=== PATIENT | female | born 1940 | race Caucasian/White ===

== ENCOUNTER 2018-03-05 13:04 | Outpatient (CLI) | payer MEDICARE, OTHER | END 2018-03-05 13:05 | disposition home or self-care (01) | LOC: RT 13:04 | PROVIDERS: ATTEND Internal Medicine Cardiovascular Disease | DX: I48.91 Unspecified atrial fibrillation (principal) | CPT/HCPCS: 36415; 80053; 80162; 84439; 84443; 85025; 85610; 93005 ==

== ENCOUNTER 2018-03-05 13:44 | Outpatient (CLI) | payer MEDICARE, OTHER ==
[2018-03-05 14:06] LABS: BASOPHILS # (AUTO) 0.1 10^3/uL (0.0-0.1); BASOPHILS % (AUTO) 0.7 %; EOSINOPHILS # (AUTO) 0.1 10^3/uL (0.0-0.7); EOSINOPHILS % (AUTO) 1.7 %; HGB - HEMOGLOBIN 14.8 g/dL (12.0-16.0); LYMPHOCYTES # (AUTO) 2.6 10^3/uL (1.5-3.5); LYMPHOCYTES % (AUTO) 31.9 %; MEAN CORPUSCULAR HEMOGLOBIN 30.3 pg (27.0-31.0); MEAN CORPUSCULAR HGB CONC 33.6 g/dL (32.0-36.0); MEAN CORPUSCULAR VOLUME 89.9 fL (81.0-99.0); MEAN PLATELET VOLUME 10.9 fL (7.9-10.8); MONOCYTES # (AUTO) 0.9 10^3/uL (0.0-1.0); MONOCYTES % (AUTO) 10.7 %; NEUTROPHILS # (AUTO) 4.5 10^3/uL (1.5-6.6); PLT - PLATELET COUNT 184 10^3/uL (130-450); RED BLOOD COUNT 4.89 10^6/uL (4.20-5.40); WHITE BLOOD COUNT 8.2 x10^3/uL (4.8-10.8)
[2018-03-05 14:08] LABS: INR 1.4 (0.8-1.2); PT - PROTHROMBIN TIME 15.4 secs (9.9-12.6)
[2018-03-05 14:20] LABS: ALBUMIN/GLOBULIN RATIO 1.1 (1.0-2.2); ALKALINE PHOSPHATASE 53 IU/L (42-121); ALT ALANINE AMINOTRANSFERASE 22 IU/L (10-60); AST ASPARTATE AMINOTRANSFERASE 17 IU/L (10-42); BILIRUBIN,TOTAL 0.8 mg/dL (0.2-1.0); BUN - BLOOD UREA NITROGEN 11 mg/dL (6-20); CALCIUM 9.1 mg/dL (8.5-10.3); CARBON DIOXIDE - CO2 25 mmol/L (21-32); CHLORIDE 104 mmol/L (101-111); CREATININE 0.7 mg/dL (0.4-1.0); DIGOXIN 0.3 ng/mL; GFR - MDRD 82 (>89); GLUCOSE 93 mg/dL (70-100); SODIUM 136 mmol/L (135-145); TOTAL PROTEIN 7.5 g/dL (6.7-8.2)
[2018-03-05 14:28] LABS: PLATELET MORPHOLOGY RARE GIANT PLATELETS (NORMAL)
[2018-03-05 14:50] LABS: THYROID STIMULATING HORMONE 1.03 uIU/mL (0.34-5.60)
[2018-03-05 14:52] LABS: FREE T4 (FREE THYROXINE) 0.75 ng/dL (0.58-1.64)
== END 2018-03-05 13:45 | disposition home or self-care (01) ==
LOC: LAB 13:44
PROVIDERS: ATTEND Internal Medicine Cardiovascular Disease
DX: I48.91 Unspecified atrial fibrillation (principal)
CPT/HCPCS: 36415; 80053; 80162; 84439; 84443; 85025; 85610

== ENCOUNTER 2018-03-13 13:26 | Outpatient (CLI) | payer MEDICARE, OTHER ==
[2018-03-13 14:52] LABS: INR 3.6 (0.8-1.2); PT - PROTHROMBIN TIME 38.8 secs (9.9-12.6)
== END 2018-03-13 13:27 | disposition home or self-care (01) ==
LOC: LAB 13:26
PROVIDERS: ATTEND Internal Medicine Cardiovascular Disease
DX: I48.91 Unspecified atrial fibrillation (principal)
CPT/HCPCS: 36415; 85610

== ENCOUNTER 2018-03-27 13:29 | Outpatient (CLI) | payer MEDICARE, OTHER ==
[2018-03-27 13:49] LABS: INR 3.2 (0.8-1.2); PT - PROTHROMBIN TIME 34.4 secs (9.9-12.6)
== END 2018-03-27 13:30 | disposition home or self-care (01) ==
LOC: LAB 13:29
PROVIDERS: ATTEND Internal Medicine Cardiovascular Disease
DX: I48.91 Unspecified atrial fibrillation (principal)
CPT/HCPCS: 36415; 85610

== ENCOUNTER → 2018-06-25 | Outpatient (CLI) | payer MEDICARE, OTHER ==
[2018-06-25 13:31] LABS: BASOPHILS % (AUTO) 0.4 %; EOSINOPHILS # (AUTO) 0.1 10^3/uL (0.0-0.7); EOSINOPHILS % (AUTO) 1.2 %; HGB - HEMOGLOBIN 14.5 g/dL (12.0-16.0); LYMPHOCYTES # (AUTO) 2.6 10^3/uL (1.5-3.5); LYMPHOCYTES % (AUTO) 28.7 %; MEAN CORPUSCULAR HEMOGLOBIN 30.5 pg (27.0-31.0); MEAN CORPUSCULAR HGB CONC 33.5 g/dL (32.0-36.0); MEAN PLATELET VOLUME 11.7 fL (7.9-10.8); MONOCYTES # (AUTO) 0.7 10^3/uL (0.0-1.0); MONOCYTES % (AUTO) 7.4 %; NEUTROPHILS # (AUTO) 5.6 10^3/uL (1.5-6.6); NEUTROPHILS % (AUTO) 62.3 %; PLT - PLATELET COUNT 202 10^3/uL (130-450); RED BLOOD COUNT 4.78 10^6/uL (4.20-5.40); RED CELL DISTRIBUTION WIDTH 14.4 % (12.0-15.0)
[2018-06-25 13:52] LABS: ALBUMIN 3.8 g/dL (3.2-5.5); ALKALINE PHOSPHATASE 58 IU/L (42-121); ALT ALANINE AMINOTRANSFERASE 20 IU/L (10-60); AST ASPARTATE AMINOTRANSFERASE 18 IU/L (10-42); BILIRUBIN,TOTAL 0.8 mg/dL (0.2-1.0); BUN - BLOOD UREA NITROGEN 12 mg/dL (6-20); CALCIUM 8.9 mg/dL (8.5-10.3); CARBON DIOXIDE - CO2 25 mmol/L (21-32); CHLORIDE 101 mmol/L (101-111); CHOL/HDL RATIO 6.6 (<4.4); CHOLESTEROL 230 mg/dL; CREATININE 0.7 mg/dL (0.4-1.0); GFR - MDRD 82 (>89); GLUCOSE 94 mg/dL (70-100); HDL CHOLESTEROL 35 mg/dL; LDL CHOLESTEROL,CALCULATED 161 mg/dL; LDL/HDL RATIO 4.6 (<4.4); SODIUM 135 mmol/L (135-145); TOTAL PROTEIN 7.7 g/dL (6.7-8.2); VLDL CHOLESTEROL 34 mg/dL
[2018-06-25 14:08] LABS: PLATELET MORPHOLOGY NORMAL APPEARANCE (NORMAL)
== END ==
LOC: LAB.WCP 08:00
PROVIDERS: ATTEND Physician Assistant
DX: Z13.220 Encounter for screening for lipoid disorders (principal); R53.83 Other fatigue; E87.1 Hypo-osmolality and hyponatremia; Z79.899 Other long term (current) drug therapy
CPT/HCPCS: 36415; 80053; 80061; 83721; 84443; 85025

== ENCOUNTER 2019-01-14 08:00 | Outpatient (CLI) | payer MEDICARE, OTHER | END 2019-01-14 23:59 | disposition home or self-care (01) | LOC: LAB.WCP 08:00 | PROVIDERS: ATTEND Family Medicine | DX: I48.91 Unspecified atrial fibrillation (principal); Z79.01 Long term (current) use of anticoagulants | CPT/HCPCS: 81025 ==

== ENCOUNTER 2019-02-11 08:00 | Outpatient (CLI) | payer MEDICARE, OTHER | END 2019-02-11 23:59 | disposition home or self-care (01) | LOC: LAB.WCP 08:00 | PROVIDERS: ATTEND Physician Assistant | DX: I48.91 Unspecified atrial fibrillation (principal); Z79.01 Long term (current) use of anticoagulants ==

== ENCOUNTER 2019-03-11 08:00 | Outpatient (CLI) | payer MEDICARE, OTHER | END 2019-03-11 08:01 | disposition home or self-care (01) | LOC: LAB.WCP 08:00 | PROVIDERS: ATTEND Physician Assistant | DX: Z51.81 Encounter for therapeutic drug level monitoring (principal); I48.91 Unspecified atrial fibrillation; Z79.01 Long term (current) use of anticoagulants ==

== ENCOUNTER 2019-04-07 08:00 | Outpatient (CLI) | payer MEDICARE, OTHER | END 2019-04-07 23:59 | disposition home or self-care (01) | LOC: LAB.WCP 08:00 | PROVIDERS: ATTEND Physician Assistant | DX: I48.91 Unspecified atrial fibrillation (principal); Z79.01 Long term (current) use of anticoagulants ==

== ENCOUNTER 2019-05-25 08:00 | Outpatient (CLI) | payer MEDICARE, OTHER ==
[2019-05-25 18:50] LABS: CHOL/HDL RATIO 5.9 (<4.4); CHOLESTEROL 226 mg/dL; HDL CHOLESTEROL 38 mg/dL; LDL CHOLESTEROL,CALCULATED 160 mg/dL; LDL/HDL RATIO 4.2 (<4.4); VLDL CHOLESTEROL 28 mg/dL
== END 2019-05-25 23:59 | disposition home or self-care (01) ==
LOC: LAB.WCP 08:00
PROVIDERS: ATTEND Physician Assistant
DX: E78.5 Hyperlipidemia, unspecified (principal); I48.91 Unspecified atrial fibrillation; Z79.01 Long term (current) use of anticoagulants
CPT/HCPCS: 36415; 80061; 83721

== ENCOUNTER 2019-06-08 08:00 | Outpatient (CLI) | payer MEDICARE, OTHER | END 2019-06-08 23:59 | disposition home or self-care (01) | LOC: LAB.WCP 08:00 | PROVIDERS: ATTEND Physician Assistant | DX: I48.91 Unspecified atrial fibrillation (principal); Z79.01 Long term (current) use of anticoagulants ==

== ENCOUNTER 2019-06-18 08:00 | Outpatient (CLI) | payer MEDICARE, OTHER | END 2019-06-18 23:59 | disposition home or self-care (01) | LOC: LAB.WCP 08:00 | PROVIDERS: ATTEND Physician Assistant | DX: I48.91 Unspecified atrial fibrillation (principal); Z79.01 Long term (current) use of anticoagulants ==

== ENCOUNTER 2019-07-01 08:00 | Outpatient (CLI) | payer MEDICARE, OTHER | END 2019-07-01 23:59 | disposition home or self-care (01) | LOC: LAB.WCP 08:00 | PROVIDERS: ATTEND Physician Assistant Medical | DX: Z79.01 Long term (current) use of anticoagulants (principal); I48.91 Unspecified atrial fibrillation ==

== ENCOUNTER 2019-07-15 08:00 | Outpatient (CLI) | payer MEDICARE, OTHER | END 2019-07-15 23:59 | disposition home or self-care (01) | LOC: LAB.WCP 08:00 | PROVIDERS: ATTEND Physician Assistant Medical | DX: I48.91 Unspecified atrial fibrillation (principal); Z79.01 Long term (current) use of anticoagulants ==

== ENCOUNTER 2019-07-26 08:00 | Outpatient (CLI) | payer MEDICARE, OTHER | END 2019-07-26 23:59 | disposition home or self-care (01) | LOC: LAB.WCP 08:00 | PROVIDERS: ATTEND Physician Assistant | DX: I48.91 Unspecified atrial fibrillation (principal); Z79.01 Long term (current) use of anticoagulants ==

== ENCOUNTER 2019-09-07 08:00 | Outpatient (CLI) | payer MEDICARE, OTHER | END 2019-09-07 23:59 | disposition home or self-care (01) | LOC: LAB.WCP 08:00 | PROVIDERS: ATTEND Physician Assistant | DX: Z79.01 Long term (current) use of anticoagulants (principal); I48.91 Unspecified atrial fibrillation ==

== ENCOUNTER 2019-12-14 08:00 | Outpatient (CLI) | payer MEDICARE, OTHER | END 2019-12-14 23:59 | disposition home or self-care (01) | LOC: LAB.WCP 08:00 | PROVIDERS: ATTEND Physician Assistant | DX: Z53.9 Procedure and treatment not carried out, unspecified reason (principal) ==

== ENCOUNTER 2020-01-11 08:00 | Outpatient (CLI) | payer MEDICARE, OTHER | END 2020-01-11 23:59 | disposition home or self-care (01) | LOC: LAB.WCP 08:00 | PROVIDERS: ATTEND Physician Assistant | DX: I48.91 Unspecified atrial fibrillation (principal); Z79.01 Long term (current) use of anticoagulants ==

== ENCOUNTER 2020-01-11 08:00 | Outpatient (CLI) | payer MEDICARE, OTHER | END 2020-01-11 23:59 | disposition home or self-care (01) | LOC: LAB.WCP 08:00 | PROVIDERS: ATTEND Physician Assistant | DX: I48.91 Unspecified atrial fibrillation (principal); Z79.01 Long term (current) use of anticoagulants ==

== ENCOUNTER 2020-02-15 08:00 | Outpatient (CLI) | payer MEDICARE, OTHER | END 2020-02-15 23:59 | disposition home or self-care (01) | LOC: LAB.WCP 08:00 | PROVIDERS: ATTEND Physician Assistant | DX: I48.91 Unspecified atrial fibrillation (principal); Z79.01 Long term (current) use of anticoagulants ==

== ENCOUNTER 2020-03-15 08:00 | Outpatient (CLI) | payer MEDICARE, OTHER | END 2020-03-15 23:59 | disposition home or self-care (01) | LOC: LAB.WCP 08:00 | PROVIDERS: ATTEND Physician Assistant | DX: I48.91 Unspecified atrial fibrillation (principal); Z79.01 Long term (current) use of anticoagulants ==

== ENCOUNTER 2020-04-14 08:00 | Outpatient (CLI) | payer MEDICARE, OTHER | END 2020-04-14 23:59 | disposition home or self-care (01) | LOC: LAB.WCP 08:00 | PROVIDERS: ATTEND Physician Assistant | DX: I48.91 Unspecified atrial fibrillation (principal); Z79.01 Long term (current) use of anticoagulants ==

== ENCOUNTER 2020-05-03 08:00 | Outpatient (CLI) | payer MEDICARE | END 2020-05-03 23:59 | disposition home or self-care (01) | LOC: LAB.WCP 08:00 | PROVIDERS: ATTEND Physician Assistant | DX: I48.91 Unspecified atrial fibrillation (principal); Z79.01 Long term (current) use of anticoagulants ==

== ENCOUNTER 2020-06-20 08:00 | Outpatient (CLI) | payer MEDICARE | END 2020-06-20 23:59 | disposition home or self-care (01) | LOC: LAB.WCP 08:00 | PROVIDERS: ATTEND Physician Assistant | DX: I48.91 Unspecified atrial fibrillation (principal); Z79.01 Long term (current) use of anticoagulants ==

== ENCOUNTER 2020-07-18 08:00 | Outpatient (CLI) | payer MEDICARE | END 2020-07-18 23:59 | disposition home or self-care (01) | LOC: LAB.WCP 08:00 | PROVIDERS: ATTEND Physician Assistant | DX: I48.91 Unspecified atrial fibrillation (principal); Z79.01 Long term (current) use of anticoagulants ==

== ENCOUNTER 2020-10-02 08:00 | Outpatient (CLI) | payer MEDICARE | END 2020-10-02 23:59 | disposition home or self-care (01) | LOC: LAB.WCP 08:00 | PROVIDERS: ATTEND Nurse Practitioner Family | DX: Z79.01 Long term (current) use of anticoagulants (principal) ==

== ENCOUNTER 2020-10-30 08:00 | Outpatient (CLI) | payer MEDICARE | END 2020-10-30 23:59 | disposition home or self-care (01) | LOC: LAB.WCP 08:00 | PROVIDERS: ATTEND Physician Assistant | DX: Z79.01 Long term (current) use of anticoagulants (principal) ==

== ENCOUNTER 2020-11-13 08:00 | Outpatient (CLI) | payer MEDICARE | END 2020-11-13 23:59 | disposition home or self-care (01) | LOC: LAB.N 08:00 | PROVIDERS: ATTEND Physician Assistant | DX: Z79.01 Long term (current) use of anticoagulants (principal) ==

== ENCOUNTER 2020-11-27 08:00 | Outpatient (CLI) | payer MEDICARE | END 2020-11-27 23:59 | disposition home or self-care (01) | LOC: LAB.WCP 08:00 | PROVIDERS: ATTEND Physician Assistant Medical | DX: Z79.01 Long term (current) use of anticoagulants (principal) ==

== ENCOUNTER 2020-12-13 08:00 | Outpatient (CLI) | payer MEDICARE | END 2020-12-13 23:59 | disposition home or self-care (01) | LOC: LAB.WCP 08:00 | PROVIDERS: ATTEND Family Medicine | DX: Z79.01 Long term (current) use of anticoagulants (principal); I48.91 Unspecified atrial fibrillation ==

== ENCOUNTER 2021-01-17 08:00 | Outpatient (CLI) | payer MEDICARE | END 2021-01-17 23:59 | disposition home or self-care (01) | LOC: LAB.N 08:00 | PROVIDERS: ATTEND Family Medicine | DX: I48.91 Unspecified atrial fibrillation (principal) ==

== ENCOUNTER 2021-01-26 08:00 | Outpatient (CLI) | payer MEDICARE ==
[2021-01-26 18:37] LABS: BASOPHILS % (AUTO) 0.5 %; EOSINOPHILS # (AUTO) 0.1 10^3/uL (0.0-0.7); EOSINOPHILS % (AUTO) 1.5 %; HGB - HEMOGLOBIN 14.6 g/dL (12.0-16.0); LYMPHOCYTES # (AUTO) 2.3 10^3/uL (1.5-3.5); LYMPHOCYTES % (AUTO) 30.8 %; MEAN CORPUSCULAR HEMOGLOBIN 30.5 pg (27.0-31.0); MEAN CORPUSCULAR HGB CONC 32.4 g/dL (32.0-36.0); MEAN CORPUSCULAR VOLUME 94.1 fL (81.0-99.0); MEAN PLATELET VOLUME 13.9 fL (7.9-10.8); MONOCYTES # (AUTO) 0.6 10^3/uL (0.0-1.0); MONOCYTES % (AUTO) 7.7 %; NEUTROPHILS # (AUTO) 4.5 10^3/uL (1.5-6.6); NEUTROPHILS % (AUTO) 59.1 %; PLT - PLATELET COUNT 196 10^3/uL (130-450); RED BLOOD COUNT 4.78 10^6/uL (4.20-5.40); RED CELL DISTRIBUTION WIDTH 14.8 % (12.0-15.0); WHITE BLOOD COUNT 7.5 x10^3/uL (4.8-10.8)
[2021-01-26 19:01] LABS: ALBUMIN 3.9 g/dL (3.2-5.5); ALBUMIN/GLOBULIN RATIO 1.2 (1.0-2.2); ALKALINE PHOSPHATASE 54 IU/L (42-121); ALT ALANINE AMINOTRANSFERASE 21 IU/L (10-60); AST ASPARTATE AMINOTRANSFERASE 18 IU/L (10-42); BILIRUBIN,TOTAL 0.6 mg/dL (0.2-1.0); BUN - BLOOD UREA NITROGEN 9 mg/dL (6-20); CALCIUM 8.9 mg/dL (8.5-10.3); CARBON DIOXIDE - CO2 26 mmol/L (21-32); CHLORIDE 102 mmol/L (101-111); CHOLESTEROL 228 mg/dL; CREATININE 0.8 mg/dL (0.4-1.0); GFR - MDRD 69 (>89); GLUCOSE 91 mg/dL (70-100); HDL CHOLESTEROL 38 mg/dL; LDL CHOLESTEROL,CALCULATED 154 mg/dL; LDL/HDL RATIO 4.1 (<4.4); POTASSIUM 4.2 mmol/L (3.5-5.0); SODIUM 137 mmol/L (135-145); TOTAL PROTEIN 7.2 g/dL (6.7-8.2); TRIGLYCERIDES 178 mg/dL; VLDL CHOLESTEROL 36 mg/dL
[2021-01-26 19:21] LABS: THYROID STIMULATING HORMONE 0.95 uIU/mL (0.34-5.60)
== END 2021-01-26 23:59 | disposition home or self-care (01) ==
LOC: LAB.WCP 08:00
PROVIDERS: ATTEND Family Medicine
DX: I48.91 Unspecified atrial fibrillation (principal); E78.5 Hyperlipidemia, unspecified; Z79.899 Other long term (current) drug therapy
CPT/HCPCS: 36415; 80053; 80061; 83721; 84443; 85025

== ENCOUNTER 2021-02-12 08:00 | Outpatient (CLI) | payer MEDICARE | END 2021-02-12 23:59 | disposition home or self-care (01) | LOC: LAB.N 08:00 | PROVIDERS: ATTEND Family Medicine | DX: I48.91 Unspecified atrial fibrillation (principal); Z79.01 Long term (current) use of anticoagulants ==

== ENCOUNTER 2021-03-19 08:00 | Outpatient (CLI) | payer MEDICARE | END 2021-03-19 23:59 | disposition home or self-care (01) | LOC: LAB.N 08:00 | PROVIDERS: ATTEND Family Medicine | DX: I48.91 Unspecified atrial fibrillation (principal); Z79.01 Long term (current) use of anticoagulants ==

== ENCOUNTER 2021-04-23 08:00 | Outpatient (CLI) | payer MEDICARE | END 2021-04-23 23:59 | disposition home or self-care (01) | LOC: LAB.N 08:00 | PROVIDERS: ATTEND Family Medicine | DX: Z79.01 Long term (current) use of anticoagulants (principal); I48.91 Unspecified atrial fibrillation ==

== ENCOUNTER 2021-05-21 08:00 | Outpatient (CLI) | payer MEDICARE | END 2021-05-21 23:59 | disposition home or self-care (01) | LOC: LAB.WCP 08:00 | PROVIDERS: ATTEND Internal Medicine | DX: I48.91 Unspecified atrial fibrillation (principal); Z79.01 Long term (current) use of anticoagulants ==

== ENCOUNTER 2021-06-04 08:00 | Outpatient (CLI) | payer MEDICARE | END 2021-06-04 23:59 | disposition home or self-care (01) | LOC: LAB.N 08:00 | PROVIDERS: ATTEND Family Medicine | DX: I48.91 Unspecified atrial fibrillation (principal); Z79.01 Long term (current) use of anticoagulants ==

== ENCOUNTER 2021-07-09 08:00 | Outpatient (CLI) | payer MEDICARE | END 2021-07-09 23:59 | disposition home or self-care (01) | LOC: LAB.N 08:00 | PROVIDERS: ATTEND Family Medicine | DX: Z79.01 Long term (current) use of anticoagulants (principal); I48.91 Unspecified atrial fibrillation ==

== ENCOUNTER 2021-08-08 08:00 | Outpatient (CLI) | payer MEDICARE | END 2021-08-08 23:59 | disposition home or self-care (01) | LOC: LAB.N 08:00 | PROVIDERS: ATTEND Family Medicine | DX: Z79.01 Long term (current) use of anticoagulants (principal); I48.91 Unspecified atrial fibrillation ==

== ENCOUNTER 2021-09-14 08:00 | Outpatient (CLI) | payer MEDICARE | END 2021-09-14 23:59 | disposition home or self-care (01) | LOC: LAB.N 08:00 | PROVIDERS: ATTEND Family Medicine | DX: I48.91 Unspecified atrial fibrillation (principal); Z79.01 Long term (current) use of anticoagulants ==

== ENCOUNTER 2021-11-21 08:00 | Outpatient (CLI) | payer MEDICARE | END 2021-11-21 23:59 | disposition home or self-care (01) | LOC: LAB.N 08:00 | PROVIDERS: ATTEND Family Medicine | DX: I48.91 Unspecified atrial fibrillation (principal); Z79.01 Long term (current) use of anticoagulants ==

== ENCOUNTER 2021-12-12 08:00 | Outpatient (CLI) | payer MEDICARE | END 2021-12-12 23:59 | disposition home or self-care (01) | LOC: LAB.N 08:00 | PROVIDERS: ATTEND Family Medicine | DX: I48.91 Unspecified atrial fibrillation (principal); Z79.01 Long term (current) use of anticoagulants ==

== ENCOUNTER 2022-01-09 08:00 | Outpatient (CLI) | payer MEDICARE | END 2022-01-09 23:59 | disposition home or self-care (01) | LOC: LAB.WCP 08:00 | PROVIDERS: ATTEND Family Medicine | DX: Z79.01 Long term (current) use of anticoagulants (principal); I48.91 Unspecified atrial fibrillation ==

== ENCOUNTER 2022-02-06 08:00 | Outpatient (CLI) | payer MEDICARE | END 2022-02-06 23:59 | disposition home or self-care (01) | LOC: LAB.WCP 08:00 | PROVIDERS: ATTEND Family Medicine | DX: I48.91 Unspecified atrial fibrillation (principal); Z79.01 Long term (current) use of anticoagulants ==

== ENCOUNTER 2022-03-11 08:00 | Outpatient (CLI) | payer MEDICARE | END 2022-03-11 23:59 | disposition home or self-care (01) | LOC: LAB.N 08:00 | PROVIDERS: ATTEND Family Medicine | DX: I48.91 Unspecified atrial fibrillation (principal); Z79.01 Long term (current) use of anticoagulants ==

== ENCOUNTER 2022-06-21 08:00 | Outpatient (CLI) | payer MEDICARE | END 2022-06-21 08:01 | disposition home or self-care (01) | LOC: LAB.WCP 08:00 | PROVIDERS: ATTEND Physician Assistant | DX: I48.91 Unspecified atrial fibrillation (principal); Z79.01 Long term (current) use of anticoagulants ==

== ENCOUNTER 2022-07-26 08:00 | Outpatient (CLI) | payer MEDICARE | END 2022-07-26 23:59 | disposition home or self-care (01) | LOC: LAB.WCP 08:00 | PROVIDERS: ATTEND Physician Assistant | DX: Z79.01 Long term (current) use of anticoagulants (principal); I48.91 Unspecified atrial fibrillation ==

== ENCOUNTER 2022-09-30 10:57 | Outpatient (CLI) | payer MEDICARE ==
--- NOTE | 2022-09-30 16:38 | XRAY Report ---
PROCEDURE: Finger(s) LT INDICATIONS: L THUMB PX TECHNIQUE: AP hand, 2 views of the first finger(s) acquired. COMPARISON: None FINDINGS: Bones: No fractures or dislocations. No suspicious bony lesions. Soft tissues: No suspicious soft tissue calcifications. IMPRESSION: 1. No evidence for acute osseous abnormality involving the patient's left thumb. 2. Moderate osteoarthritic type degenerative change involving the left fifth DIP joint and left secon d MCP joint. Reviewed by: Cornelio Avelar MD on 09/30/2022 4:37 PM PST Approved by: Cornelio Avelar MD on 09/30/2022 4:37 PM PST Station ID: [id number]
== END 2022-09-30 10:58 | disposition home or self-care (01) ==
LOC: DI.N 10:57
PROVIDERS: ATTEND Physician Assistant
DX: M19.042 Primary osteoarthritis, left hand (principal)

== ENCOUNTER → 2022-10-02 | Outpatient (CLI) | payer MEDICARE | LOC: LAB.WCP 08:00 | PROVIDERS: ATTEND Physician Assistant | DX: Z79.01 Long term (current) use of anticoagulants (principal); I48.91 Unspecified atrial fibrillation ==

== ENCOUNTER 2022-12-05 12:58 | Emergency (ER) | payer MEDICARE ==
--- NOTE | 2022-12-05 14:12 | ED Physician Documentation ---
History of Present Illness - Stated complaint Stated Complaint: HEADACHE - Chief complaint Chief Complaint: Neuro - Additonal information Additional information: 82-year-old female was advised to come to the emergency department for evaluatio n of strokelike symptoms. She does have a history of well-controlled hypertension as well as atrial fibrillation. She is anticoagulated on Pradaxa. She reports compliance with all of her medications. At 9 AM yesterday the patient was on the phone speaking with her sister. She suddenly got garbled speech. She was aware that she could not speak normally. She also reports that she had double vision. The symptoms lasted for about 5 minutes before fully abating. Patient denies that she had focal weakness in her arms or legs at this time and does not believe that she had facial droop. Becau se she had returned to her baseline she did not think anything of it however when she was discussing the event with friends and family they told her to get medically evaluated thus she presented to the walk-in clinic who advised her to come here. At this time patient is alert well-appearing. Her vital signs are unremarkable for age and history. She is noted to be in atrial fibrillation well controlled on the monitor. Neurologically her NIHSS is 0 right now she no longer has slurred speech or double vision. Review of Systems Constitutional: denies: Fever, Chills Eyes: reports: Other (Double vision) Respiratory: reports: Reviewed and negative GI: reports: Reviewed and negative : reports: Reviewed and negative Skin: reports: Reviewed and negative Musculoskeletal: reports: Reviewed and negative Neurologic: reports: Difficulty speaking PD PAST MEDICAL HISTORY - Present Medications Home Medications: Ambulatory Orders Medication Instructions Recorded Confirmed Atorvastatin [Lipitor] 20 mg PO QPM #30 tablet 12/05/22 Dabigatran Etexilate Mesylate 150 mg ORAL BID 12/05/22 12/05/22 [Pradaxa] Digoxin [Lanoxin] 125 mcg PO DAILY 12/05/22 12/05/22 diltiaZEM CD [Cardizem Cd] 120 mg PO DAILY 12/05/22 12/05/22 - Allergies Allergies/Adverse Reactions: Allergies Allergy/AdvReac Type Severity Reaction Status Date / Time No Known Drug Allergies Allergy Verified 12/05/22 13:07 PD ED PE NORMAL - General General: Alert and oriented X 3, No acute distress, Well developed/nourished - HEENT HEENT: Atraumatic, PERRL, EOMI, Ears normal, Moist mucous membranes - Neck Neck: Supple, no meningeal sign - Cardiac Cardiac: No murmur, Strong equal pulses. No: RRR (Rate controlled atrial fibrillation. Irregularly irregular) - Respiratory Respiratory: No respiratory distress, Clear bilaterally - Back Back: No CVA TTP - Derm Derm: Normal color, Warm and dry, No rash - Extremities Extremities: No deformity - Neuro Neuro: Alert and oriented X 3, security solutions engineer 2-12 intact, No motor deficit, No sensory deficit, Normal speech, Other (NIHSS of 0; Normal finger-nose. Normal heel rodriguez.) Eye Opening: Spontaneous Motor: Obeys Commands Verbal: Oriented GCS Score: 15 Results - Vitals Vitals: Vital Signs - 24 hr 12/05/22 12/05/22 13:09 15:13 Temperature 36.7 C Heart Rate 86 68 Respiratory 16 17 Rate Blood Pressure 145/81 H 133/82 H O2 Saturation 97 96 Oxygen O2 Source Room air - Rads (name of study) CT head Radiology: Final report received (No evidence of acute hemorrhage. Old deep white matter infarct. Age-related volume loss and moderate to severe small vessel ischemic change) PD Medical Decision Making - ED course Complexity details: re-evaluated patient, considered differential, d/w patient, d/w family ED course: 82-year-old female presents emergency department from a local walk-in clinic for evaluation of a headache. She is anticoagulated on Pradaxa. She gone to a local walk-in clinic when she had reported that yesterday morning at 9 AM she was on the phone and developed garbled speech and double vision. The symptoms lasted about 5 minutes before fully abating. She returned to her usual baseline health. She does report a history of remote CVA. Presentation to the ER today she has an NIHSS of 0. She does have a well rate controlled A-fib on the monitor. A CT of the head today shows no acute bleeding or mass effect. However we do see findings that suggest old remote infarction. I am at this time she is scheduled to see her wet process technician in follow-up in the next 1 to 2 weeks. At that time she should have an echocardiogram ordered. I am going to start her on a statin. I discussed with patient that she is at high risk for further events moving forward and should she have a return of similar symptoms she will need to return immediately to the ER. Given that she continues to drive of also asked her to stop driving until cleared by her wet process technician or neurologist. Departure - Departure Disposition: 01 Home, Self Care Clinical Impression: Stroke-like symptoms, Cerebral arteriosclerosis with history of previous stroke, History of atrial fibrillation, Anticoagulated Condition: Stable Record reviewed to determine appropriate education?: Yes Prescriptions: Atorvastatin [Lipitor] 20 mg PO QPM #30 tablet Comments: Monae she came to the emergency department today because yesterday morning you were on the phone developed some double vision and had slurred speech for about 5 minutes. Her symptoms fully went away. He went to a local walk-in clinic and they advised you to come to the ER. He did have a history of atrial fibrillation and you are taking anticoagulant medication. Here in the emergency department your neurological exam is essentially normal. However the CT scan that we did today shows that you have had strokes at some point in the past. Moving forward it is important that you obtain an MRI of your brain. When you see your wet process technician in follow-up in the next week or 2 he should also order an echocardiogram. You can continue to take your Pradaxa. In order to help with risk management I am going to start you on a statin. I do think it is important that you stop driving. If it any point moving forward you have return of similar symptoms, slurred speech, facial droop, arm or leg weakness you must return immediately to the ER.
--- NOTE | 2022-12-05 14:54 | CT Report ---
PROCEDURE: HEAD WO INDICATIONS: headache on pradaxa TECHNIQUE: Noncontrast 4.5 mm thick angled axial sections acquired from the foramen magnum to the vertex. For r adiation dose reduction, the following was used: automated exposure control, adjustment of mA and/or kV according to patient size. COMPARISON: None. FINDINGS: Image quality: Excellent. CSF spaces: Basal cisterns are patent. No extra-axial fluid collections. Ventricles are normal in size and shape. Brain: No midline shift. No intracranial masses or hemorrhage. [place]-white matter interface is norm al. Old left foraminal deep white matter infarct. Age-related volume loss and moderate to severe sma ll vessel ischemic change. Skull and face: Calvarium and visualized facial bones are intact, without suspicious lesions. Sinuses: Visualized sinuses and mastoids are clear. IMPRESSION: 1. No evidence of acute hemorrhage. 2. Age-related volume loss and moderate to severe small vessel ischemic change. 3. Old deep white matter infarct. Reviewed by: Kwesi Hook MD on 12/05/2022 2:52 PM PST Approved by: Kwesi Hook MD on 12/05/2022 2:52 PM PST Station ID: [id number]
[2022-12-05] MEDS ORDERED: ACETAMINOPHEN 325 MG TABLET PO STA (15:00)
[2022-12-05 16:16] VITALS: BP 131/71
== END 2022-12-05 16:19 | disposition home or self-care (01) ==
LOC: ED 12:58
DX: I67.2 Cerebral atherosclerosis (principal); I48.91 Unspecified atrial fibrillation; Z79.01 Long term (current) use of anticoagulants; Z86.73 Personal history of transient ischemic attack (TIA), and cerebral infarction without residual deficits
CPT/HCPCS: 70450; 99284; A9270

== ENCOUNTER 2023-07-09 10:29 | Outpatient (CLI) | payer MEDICARE ==
[2023-07-09 10:45] LABS: BASOPHILS % (AUTO) 0.4 %; EOSINOPHILS % (AUTO) 1.3 %; HCT - HEMATOCRIT 43.9 % (37.0-47.0); HGB - HEMOGLOBIN 14.1 g/dL (12.0-16.0); LYMPHOCYTES % (AUTO) 22.1 %; MEAN CORPUSCULAR HEMOGLOBIN 29.6 pg (27.0-31.0); MEAN CORPUSCULAR HGB CONC 32.1 g/dL (32.0-36.0); MEAN PLATELET VOLUME 12.3 fL (7.9-10.8); MONOCYTES % (AUTO) 8.7 %; NEUTROPHILS % (AUTO) 67.3 %; PLT - PLATELET COUNT 265 10^3/uL (130-450); RED BLOOD COUNT 4.77 10^6/uL (4.20-5.40); RED CELL DISTRIBUTION WIDTH 14.5 % (12.0-15.0); WHITE BLOOD COUNT 8.4 x10^3/uL (4.8-10.8)
[2023-07-09 10:47] LABS: ABNORMAL LYMPHS % (MANUAL) 0 %
[2023-07-09 11:12] LABS: BAND NEUTROPHILS % (MANUAL) 1 %; DIFFERENTIAL COMMENT MANUAL DIFFERENTIAL; LYMPHOCYTES # (MANUAL) 2.3 10^3/uL (1.5-3.5); LYMPHOCYTES % (MANUAL) 19 %; MONOCYTES # (MANUAL) 1.1 10^3/uL (0.0-1.0); REACTIVE LYMPHS % (MANUAL) 8 %
[2023-07-09 11:30] LABS: ALBUMIN 4.1 g/dL (3.2-5.5); ALBUMIN/GLOBULIN RATIO 1.3 (1.0-2.2); ALKALINE PHOSPHATASE 72 IU/L (42-121); ALT ALANINE AMINOTRANSFERASE 25 IU/L (10-60); AST ASPARTATE AMINOTRANSFERASE 22 IU/L (10-42); BILIRUBIN,TOTAL 0.7 mg/dL (0.2-1.0); BUN - BLOOD UREA NITROGEN 13 mg/dL (6-20); CALCIUM 9.5 mg/dL (8.5-10.3); CARBON DIOXIDE - CO2 28 mmol/L (21-32); CHLORIDE 101 mmol/L (101-111); CHOL/HDL RATIO 4.6 (<4.4); CHOLESTEROL 184 mg/dL; CK- CREATINE KINASE 97 IU/L (30-223); CREATININE 0.6 mg/dL (0.6-1.3); GFR - MDRD 96 (>89); GLUCOSE 109 mg/dL (74-104); HDL CHOLESTEROL 40 mg/dL; LDL CHOLESTEROL,CALCULATED 126 mg/dL; LDL/HDL RATIO 3.2 (<4.4); POTASSIUM 4.5 mmol/L (3.5-4.5); SODIUM 135 mmol/L (135-145); TOTAL PROTEIN 7.3 g/dL (6.4-8.9); TRIGLYCERIDES 92 mg/dL (48-352); VLDL CHOLESTEROL 18 mg/dL
[2023-07-09 12:29] LABS: THYROID STIMULATING HORMONE 1.15 uIU/mL (0.34-5.60)
--- NOTE | 2023-07-09 14:08 | XRAY Report ---
PROCEDURE: Lumbar Spine 2 View INDICATIONS: LEG PAIN TECHNIQUE: 3 views of the lumbar spine were acquired. COMPARISON: None. FINDINGS: Bones: 5 [id number] vertebrae are present. There is normal bony alignment. No vertebral body compression fractures. No suspicious bony lesions. Moderate disc height loss at all levels. Moderat e facet arthrosis L5-S1. Soft tissues: Overlying bowel gas pattern is normal. No suspicious soft tissue calcifications. IMPRESSION: Moderate disc height loss at all levels and moderate lumbosacral facet arthrosis. Reviewed by: Delbert Garcia on 07/09/2023 2:07 PM PDT Approved by: Delbert Garcia on 07/09/2023 2:07 PM PDT Station ID: [id number]
--- NOTE | 2023-07-09 14:09 | XRAY Report ---
PROCEDURE: Hips 2V BILAT INDICATIONS: LEG PAIN TECHNIQUE: 2 views of the left hip, and one view of the pelvis were acquired. COMPARISON: None. FINDINGS: Bones: No fractures or dislocations. No suspicious bony lesions. Nonuniform joint space narrowing and osteophytic lipping of the acetabulum. Soft tissues: No suspicious soft tissue calcifications or masses. IMPRESSION: Mild left hip osteoarthritis. Reviewed by: Delbert Garcia on 07/09/2023 2:08 PM PDT Approved by: Delbert Garcia on 07/09/2023 2:08 PM PDT Station ID: [id number]
--- NOTE | 2023-07-09 14:10 | XRAY Report ---
PROCEDURE: Femur 2V LT INDICATIONS: LEG PAIN TECHNIQUE: 2 views of the femur were acquired. COMPARISON: None. FINDINGS: Bones: No fractures or dislocations. No suspicious bony lesions. Soft tissues: No suspicious soft tissue calcifications or masses. IMPRESSION: No acute bony abnormality. Reviewed by: Delbert Garcia on 07/09/2023 2:08 PM PDT Approved by: Delbert Garcia on 07/09/2023 2:08 PM PDT Station ID: [id number]
== END 2023-07-09 10:30 | disposition home or self-care (01) ==
LOC: DI 10:29
PROVIDERS: ATTEND Physician Assistant
DX: M79.605 Pain in left leg (principal); I48.91 Unspecified atrial fibrillation; M79.10 Myalgia, unspecified site; E78.5 Hyperlipidemia, unspecified; M47.816 Spondylosis without myelopathy or radiculopathy, lumbar region; M51.36 Other intervertebral disc degeneration, lumbar region; M16.0 Bilateral primary osteoarthritis of hip
CPT/HCPCS: 36415; 80053; 80061; 82550; 83721; 84443; 85025

== ENCOUNTER 2023-09-12 16:10 | Outpatient (CLI) | payer MEDICARE ==
[2023-09-12 17:00] LABS: DIGOXIN 0.5 ng/mL
== END 2023-09-12 16:11 | disposition home or self-care (01) ==
LOC: LAB 16:10
PROVIDERS: ATTEND Physician Assistant
DX: I48.91 Unspecified atrial fibrillation (principal)
CPT/HCPCS: 36415; 80162

== ENCOUNTER 2024-06-18 11:10 | Observation (INO) | payer MEDICARE ==
[2024-06-18 11:49] LABS: BASOPHILS % (AUTO) 0.2 %; EOSINOPHILS % (AUTO) 0.2 %; HCT - HEMATOCRIT 45.5 % (37.0-47.0); HGB - HEMOGLOBIN 14.5 g/dL (12.0-16.0); LYMPHOCYTES # (AUTO) 1.9 10^3/uL (1.5-3.5); LYMPHOCYTES % (AUTO) 11.7 %; MEAN CORPUSCULAR HEMOGLOBIN 29.7 pg (27.0-31.0); MEAN CORPUSCULAR HGB CONC 31.9 g/dL (32.0-36.0); MEAN PLATELET VOLUME 12.6 fL (7.9-10.8); MONOCYTES # (AUTO) 1.1 10^3/uL (0.0-1.0); NEUTROPHILS # (AUTO) 13.1 10^3/uL (1.5-6.6); NEUTROPHILS % (AUTO) 80.5 %; PLT - PLATELET COUNT 211 10^3/uL (130-450); RED BLOOD COUNT 4.89 10^6/uL (4.20-5.40); RED CELL DISTRIBUTION WIDTH 14.3 % (12.0-15.0); WHITE BLOOD COUNT 16.2 x10^3/uL (4.8-10.8)
[2024-06-18 11:52] LABS: SLIDE REVIEW? Indicated
[2024-06-18 12:02] LABS: ALBUMIN 3.9 g/dL (3.2-5.5); ALBUMIN/GLOBULIN RATIO 1.1 (1.0-2.2); BILIRUBIN,TOTAL 0.7 mg/dL (0.2-1.0); CREATININE 0.8 mg/dL (0.6-1.3); POTASSIUM 4.5 mmol/L (3.5-4.5); TOTAL PROTEIN 7.4 g/dL (6.4-8.9)
[2024-06-18 12:19] LABS: PLATELET ESTIMATE, MANUAL NORMAL (130-450,000) (NORMAL); RBC MORPHOLOGY (MULTIPLE) NORMAL APPEARANCE (NORMAL)
[2024-06-18 12:20] LABS: DIFFERENTIAL COMMENT MANUAL=AUTO DIFF; PLATELET MORPHOLOGY 1+ LARGE PLATELETS (NORMAL); WBC MORPHOLOGY (MULTIPLE) NORMAL APP (NORMAL)
[2024-06-18] MEDS: SODIUM CHLORIDE 0.9% 1,000 ML IV STA (13:21)
[2024-06-18] MEDS ORDERED: iohexoL-300 100 ML VIAL ONE (13:26)
--- NOTE | 2024-06-18 13:26 | ED Physician Documentation ---
PD HPI ABD PAIN - Stated complaint Stated Complaint: GROIN PX - Chief complaint Chief Complaint: Abd Pain - History obtained from History obtained from: Patient - Additional information Additional information: The patient comes to the emergency department chief complaint of right lower quadrant abdominal pain that started a couple of days ago. She at first thought she just strained her abdominal muscles from lifting some flowerpots but states its gotten worse and she is concerned that something else may be wrong. She denies any fevers, chills, nausea, vomiting, or stool changes. She states she had a normal bowel movement this morning. No surgical history in the area. No dysuria or hematuria. No other complaints at this time. PD PAST MEDICAL HISTORY - Past Medical History Past Medical History: Yes Cardiovascular: Hypertension, Atrial fibrillation - Past Surgical History Past Surgical History: No - Present Medications Home Medications: Ambulatory Orders Medication Instructions Recorded Confirmed Dabigatran Etexilate Mesylate 150 mg ORAL BID 12/05/22 12/05/22 [Pradaxa] Digoxin [Lanoxin] 125 mcg PO DAILY 12/05/22 12/05/22 RX: Atorvastatin [Lipitor] 20 mg PO QPM #30 tablet 12/05/22 diltiaZEM CD [Cardizem Cd] 120 mg PO DAILY 12/05/22 12/05/22 - Allergies Allergies/Adverse Reactions: Allergies Allergy/AdvReac Type Severity Reaction Status Date / Time No Known Drug Allergies Allergy Verified 06/18/24 11:17 - Social History Does the pt smoke?: No Smoking Status: Never smoker Does the pt drink ETOH?: No - Immunizations Immunizations are current?: Yes PD ED PE NORMAL - Vitals Vital signs reviewed: Yes - General General: Alert and oriented X 3, No acute distress, Well developed/nourished - HEENT HEENT: Atraumatic, EOMI, Moist mucous membranes - Neck Neck: Supple, no meningeal sign - Cardiac Cardiac: RRR, No murmur - Respiratory Respiratory: No respiratory distress, Clear bilaterally - Abdomen Abdomen: Soft, Non distended, Other (Notable tenderness right lower quadrant, no rebound or guarding.) - Derm Derm: Warm and dry - Extremities Extremities: No deformity - Neuro Neuro: Alert and oriented X 3 - Psych Psych: Normal mood, Normal affect Results - Vitals Vitals: Vital Signs - 24 hr 06/18/24 11:17 Temperature 36.7 C Heart Rate 99 Respiratory 16 Rate Blood Pressure 129/90 H O2 Saturation 99 Oxygen O2 Source Room air - Labs Labs: Laboratory Tests 06/18/24 06/18/24 06/18/24 11:41 11:41 13:25 WBC 16.2 H RBC 4.89 Hgb 14.5 Hct 45.5 MCV 93.0 MCH 29.7 MCHC 31.9 L RDW 14.3 Plt Count 211 MPV 12.6 H Neut # (Auto) 13.1 H Lymph # (Auto) 1.9 [place] # (Auto) 1.1 H Eos # (Auto) 0.0 Baso # (Auto) 0.0 Absolute Nucleated RBC 0.00 Band Neuts % (Manual) Not Reportable Abnorm Lymph % (Manual) Not Reportable Nucleated RBC % 0.0 Neutrophils # (Manual) Not Reportable Lymphocytes # (Manual) Not Reportable Monocytes # (Manual) Not Reportable Eosinophils # (Manual) Not Reportable Basophils # (Manual) Not Reportable Differential Comment MANUAL=AUTO DIFF Manual Slide Review Indicated WBC Morphology NORMAL ROLY Platelet Estimate NORMAL (130-450,000) Platelet Morphology 1+ LARGE PLATELETS RBC Morph Micro Appear NORMAL APPEARANCE Sodium 136 Potassium 4.5 Chloride 100 L Carbon Dioxide 29 Anion Gap 7.0 BUN 12 Creatinine 0.8 Estimated GFR (MDRD) 69 L Glucose 105 H Calcium 9.0 Total Bilirubin 0.7 AST 14 ALT 18 Alkaline Phosphatase 72 Total Protein 7.4 Albumin 3.9 Globulin 3.5 Albumin/Globulin Ratio 1.1 Lipase 20 Urine Color DARK YELLOW Urine Clarity CLEAR Urine pH 6.0 Ur Specific [place] 1.025 Urine Protein NEGATIVE Urine Glucose (UA) NEGATIVE Urine Ketones 15 H Urine Occult Blood NEGATIVE Urine Nitrite NEGATIVE Urine Bilirubin NEGATIVE Urine Urobilinogen 0.2 (NORMAL) Ur Leukocyte Esterase TRACE H Urine RBC 0-5 Urine WBC 6-10 H Urine WBC Clumps PRESENT Ur Squamous Epith Cells FEW Squamous Urine Bacteria Few Ur Microscopic Review INDICATED Urine Culture Comments INDICATED PD Medical Decision Making - ED course Complexity details: reviewed results, re-evaluated patient, considered differential, d/w patient ED course: The patient was worked up with laboratory studies which showed a white blood cell count of 16.2 and unremarkable ER abdominal panel. A CT scan of the abdomen and pelvis was ordered, And continues to pend at this time. The patient's urinalysis shows trace leukocyte esterase and 6-10 WBCs. At this point in time, the patient will be signed out to the oncoming emergency physician at change of shift, pending CT scan results and final disposition. She has received a liter of fluid and is comfortable at this time. Departure - Departure Forms: PCP List
[2024-06-18 13:56] LABS: BILIRUBIN,URINE NEGATIVE (NEGATIVE); GLUCOSE, URINE (UA) NEGATIVE (NEGATIVE); KETONES,URINE (UA) 15 mg/dL (NEGATIVE); LEUKOCYTE ESTERASE, URINE TRACE (NEGATIVE); NITRITE,URINE NEGATIVE (NEGATIVE); OCCULT BLOOD,URINE NEGATIVE (NEGATIVE); PROTEIN,URINE NEGATIVE (NEGATIVE); UROBILINOGEN,URINE 0.2 (NORMAL) E.U./dL (NORMAL)
[2024-06-18 13:59] LABS: CLARITY,URINE CLEAR (CLEAR)
[2024-06-18 14:14] LABS: BACTERIA,URINE Few /HPF (None Seen); RBC,URINE 0-5 /HPF (0-5); SQUAMOUS EPITHELIAL CELL,UR FEW Squamous (<= Few); WBC CLUMPS,URINE PRESENT
--- NOTE | 2024-06-18 15:23 | ED Physician Documentation ---
ED Addendum - Addendum Addendum: 06/18/24 15:[address] Care to me from Dr Ramon. See her H/p. SEen at bedside. Briefly 83 yo f with 2 days rlq pain. Hx afib on xarelto. No abd surgeries. WBC 16k Waiting CT read. 06/18/24 15:42 On my independent review of her CT it does look like she does have acute appendicitis. The radiology read is pending but I did asked Dr. Dorsey to come see her. He plans to bring her into the hospital and let her Xarelto washout overnight on IV antibiotics for surgery in the morning. Condition: Stable Diagnosis: 1. Acute appendicitis 2. On chronic anticoagulant therapy
[2024-06-18] MEDS: ACETAMINOPHEN 500 MG TABLET PO STA (15:24)
[2024-06-18] MEDS: iohexoL-300 100 ML VIAL IVP ONE (15:51)
--- NOTE | 2024-06-18 16:27 | CT Report ---
PROCEDURE: Abdomen/Pelvis W INDICATIONS: RLQ pain CONTRAST: 100ml omni 300 TECHNIQUE: After the administration of intravenous contrast, a CT scan of the abdomen and pelvis was performed. Images were recorded and evaluated at appropriate window settings. Reformats: coronal and sagittal. F or radiation dose reduction, the following was used: automated exposure control, adjustment of mA and /or kV according to patient size. COMPARISON: None. FINDINGS: Image quality: Diagnostic. Lower chest: Unremarkable. Liver: No solid mass. Number is enlarged measuring 19.2 cm with mild steatosis. Gallbladder: Distended without stones or wall thickening. Biliary tree: No intrahepatic or extrahepatic dilation, accounting for age. Spleen: No splenomegaly. Pancreas: No pancreatic ductal dilation. Adrenals: No adrenal nodule. Kidneys and ureters: No hydronephrosis. No renal cystic lesion which requires follow up. No solid mas s. Stomach, bowel and peritoneum: The appendix is enlarged measuring 1.3 cm with periappendiceal strandi ng. No abscess. No evidence of perforation. No appendicolith. No pathologic free fluid. Lymph nodes: No central or retroperitoneal adenopathy. Vessels: No infrarenal aortic aneurysm. Patent portal vein. PELVIS Reproductive organs: Unremarkable. Bladder: No abnormal wall thickening, accounting for underdistention. Pelvic lymph nodes: No pelvic adenopathy by size criteria. Bones: No aggressive osseous abnormality. Other: No significant ventral or inguinal hernia. IMPRESSION: Enlarged appendix with inflammatory change most consistent with acute appendicitis. No perforation or appendicolith. The above findings were discussed with Dr. Eriberto Adler on 06/18/2024 at 4:25 PM. Reviewed by: Tosha Back MD on 06/18/2024 4:26 PM PDT Approved by: Tosha Back MD on 06/18/2024 4:26 PM PDT Station ID: [id number]
[2024-06-18] MEDS: PIPERACILLIN/TAZOBACTAM 3.375 GM in SODIUM CHLORIDE 0.9% MINIBAG 100 ML IV STA (16:43)
[2024-06-18] MEDS ORDERED: MORPHINE 2 MG/ML CARPUJECT IVP PRN (16:50)
[2024-06-18] MEDS ORDERED: PROMETHAZINE 25 MG/1 ML VIAL IM PRN (16:50)
[2024-06-18] MEDS ORDERED: SODIUM CHLORIDE FLUSH 0.9% 10 ML SYRINGE IVP PRN (16:50)
--- NOTE | 2024-06-18 16:59 | CONSULTATION NOTE ---
Referring Provider Name of Referring Provider:: Dr. Eriberto Small Consult Date: 06/18/24 Chief Complaint - Chief Complaint Chief Complaint: Acute appendicitisin a patient on Xarelto History of Present Illness - Admitted From Admitted From:: Outpatient in a bed - waiting for Xarelto to wear off - History Obtained From Records Reviewed: Yes History obtained from: Patient and chart Exam Limitations: None - History of Present Illness HPI Comment/Other: This exceedingly pleasant 83-year-old female was evaluated in room 9 and at [facility]'s emergency department at the request of Dr. Eriberto Small for acute appendicitis. The patient's symptoms started 2 days ago and when they did not resolve the patient came into the emergency department. Her granddaughter is a nurse down in [facility] I believe at [facility]. She agreed with the patient coming to the hospital. There has been no significant nausea or vomiting. The pain is considered unremitting and in the right lower quadrant. She has not had the symptoms previously. Importantly she is on Xarelto for atrial fibrillation. The rate is controlled. History - Past Medical History Cardiovascular: reports: Hypertension, Atrial fibrillation MRSA Hx?: No Meds/Allgy - Home Medications Home Medications: Ambulatory Orders Medication Instructions Recorded Confirmed Atorvastatin [Lipitor] 20 mg PO QPM #30 tablet 12/05/22 Dabigatran Etexilate Mesylate 150 mg ORAL BID 12/05/22 12/05/22 [Pradaxa] Digoxin [Lanoxin] 125 mcg PO DAILY 12/05/22 12/05/22 diltiaZEM CD [Cardizem Cd] 120 mg PO DAILY 12/05/22 12/05/22 - Allergies Allergies/Adverse Reactions: Allergies Allergy/AdvReac Type Severity Reaction Status Date / Time No Known Drug Allergies Allergy Verified 06/18/24 11:17 Review of Systems - Constitutional Constitutional: denies: Fatigue, Fever, Chills - Eyes Eyes: denies: Pain - Ears, Nose & Throat Ears, Nose & Throat: denies: Ear pain - Cardiovascular Cariovascular: reports: Irregular heart rate. denies: Palpitations, Chest pain, Lightheadedness, Syncope - Respiratory Respiratory: denies: Cough - Gastrointestinal Gastrointestinal: reports: Abdominal pain. denies: Black stools, Bloody stools, Bile emesis, Johan blood emesis - Integumentary Integumentary: denies: Rash - Neurological Neurological: denies: General weakness, Focal weakness - Psychiatric Psychiatric: denies: Depression, Anxiety Exam - Vital Signs Reviewed Vital Signs: Yes Vital Signs: Vital Signs x48h Temp Pulse Resp BP Pulse Ox 06/18/24 15:28 92 16 149/80 H 98 06/18/24 11:17 36.7 C 99 16 129/90 H 99 - Physical Exam General Appearance: positive: No acute distress Eyes Bilateral: positive: No lid inflammation, Conjunctivae nml, No scleral icterus ENT: positive: No signs of dehydration, Other (Mallampati II) Neck: positive: Trachea midline Respiratory: positive: Chest non-tender, No respiratory distress, Breath sounds nml Cardiovascular: positive: No murmur, No gallop, Irregularly irregular, Other (Rate controlled in the 90's) Abdomen: positive: Tenderness (At McBurney's point), Abnml bowel sounds (Slightly decreased but present). negative: Guarding, Rebound Skin: positive: Color nml, No rash, Warm, Dry Extremities: positive: Nml appearance Neurologic/Psychiatric: positive: Oriented x3, Motor nml, Sensation nml, Mood/affect nml Conclusion and Plan - Lab Results Laboratory Results 06/18/24 13:25: Urine Color DARK YELLOW, Urine Clarity CLEAR, Urine pH 6.0, Ur Specific [place] 1.025, Urine Protein NEGATIVE, Urine Glucose (UA) NEGATIVE, Urine Ketones 15 H, Urine Occult Blood NEGATIVE, Urine Nitrite NEGATIVE, Urine Bilirubin NEGATIVE, Urine Urobilinogen 0.2 (NORMAL), Ur Leukocyte Esterase TRACE H, Urine RBC 0-5, Urine WBC 6-10 H, Urine WBC Clumps PRESENT, Ur Squamous Epith Cells FEW Squamous, Urine Bacteria Few, Ur Microscopic Review INDICATED, Urine Culture Comments INDICATED 06/18/24 11:41: Sodium 136, Potassium 4.5, Chloride 100 L, Carbon Dioxide 29, Anion Gap 7.0, BUN 12, Creatinine 0.8, Estimated GFR (MDRD) 69 L, Glucose 105 H, Calcium 9.0, Total Bilirubin 0.7, AST 14, ALT 18, Alkaline Phosphatase 72, Total Protein 7.4, Albumin 3.9, Globulin 3.5, Albumin/Globulin Ratio 1.1, Lipase 20 06/18/24 11:41: WBC 16.2 H, RBC 4.89, Hgb 14.5, Hct 45.5, MCV 93.0, MCH 29.7, MCHC 31.9 L, RDW 14.3, Plt Count 211, MPV 12.6 H, Neut # (Auto) 13.1 H, Lymph # (Auto) 1.9, [place] # (Auto) 1.1 H, Eos # (Auto) 0.0, Baso # (Auto) 0.0, Absolute Nucleated RBC 0.00, Band Neuts % (Manual) Not Reportable, Abnorm Lymph % (Manual) Not Reportable, Nucleated RBC % 0.0, Neutrophils # (Manual) Not Reportable, Lymphocytes # (Manual) Not Reportable, Monocytes # (Manual) Not Reportable, Eosinophils # (Manual) Not Reportable, Basophils # (Manual) Not Reportable, Differential Comment MANUAL=AUTO DIFF, Manual Slide Review Indicated, WBC Morphology NORMAL ROLY, Platelet Estimate NORMAL (130-450,000), Platelet Morphology 1+ LARGE PLATELETS, RBC Morph Micro Appear NORMAL APPEARANCE - Diagnostic Imaging Results Diagnostic Imaging Results: positive: Read independently - Diagnosis Diagnosis: Acute appendicitis in a patient on Pradaxa - Plan Plan: Laparoscopic appendectomy, possible open appendectomy after waiting for the half-life of Pradaxa to pass. The indications, procedure, alternatives, and possible complications including but not limited to infection, bleeding requiring transfusion, and were fully explained to the patient and all questions answered. I explained to due to her anticoagulation the risk of bleeding is higher than normal. Additionally while waiting to do the surgery the risk of infection is higher as well. There is a chance that she may require a drain to be placed following the surgery. I have asked her to contact me with any surgical questions and or concerns and she stated that she would. I have asked her to let us know if there is any way we can make her stay at [facility] more comfortable. Again she stated she would let us know. I we will prescribe her Lipitor Lanoxin and diltiazem for the morning but obviously hold her Pradaxa. CPT 32370 This document was created in part using voice recognition technology. Because of the inherent limitations of the system, occasional same sounding word substitutions and grammatical errors do occur and persist despite proofreading. Please read this document for content.
[2024-06-18] MEDS: SODIUM CHLORIDE FLUSH 0.9% 10 ML SYRINGE IVP SCH (19:06)
[2024-06-18] MEDS: SODIUM CHLORIDE 0.9% 1,000 ML IV SCH (19:06)
[2024-06-18] MEDS: PIPERACILLIN/TAZOBACTAM 3.375 GM in SODIUM CHLORIDE 0.9% MINIBAG 100 ML IV SCH (20:35)
[2024-06-18] MEDS: HYDROcod/ACETAM 5/325 MG TABLET PO PRN (20:47)
[2024-06-19] MEDS: ATORVASTATIN 10 MG TABLET PO SCH (05:41)
[2024-06-19] MEDS: diltiaZEM CD 180 MG CAPSULE PO SCH (05:48)
[2024-06-19] MEDS: DIGOXIN 125 MCG TABLET PO SCH (05:48)
[2024-06-19] MEDS ORDERED: BUPIVACAINE 0.5%-EPI 1:200000 PF 10 ML VIAL ONE (07:29)
--- NOTE | 2024-06-19 07:42 | ANESTHESIA ---
Pre-Anesthesia VS, & Labs - Diagnosis Diagnosis Acute appendicitis in a patient on Pradaxa - Procedure Lap Appy Vital Signs: Temp Pulse Resp BP Pulse Ox O2 Flow Rate 36.7 C 107 H 16 134/88 H 94 06/19/24 00:16 06/19/24 00:16 06/19/24 00:16 06/19/24 00:16 06/19/24 00:16 Height: 5 ft 7 in Weight (kg): 87.543 kg Body Mass Index: 30.2 BMI Classification: Obese - NPO >8 hours - Is Patient ?: No - Lab Results Current Lab Results: Laboratory Tests 06/18/24 11:41: Sodium 136, Potassium 4.5, Chloride 100 L, Carbon Dioxide 29, Anion Gap 7.0, BUN 12, Creatinine 0.8, Estimated GFR (MDRD) 69 L, Glucose 105 H, Calcium 9.0, Total Bilirubin 0.7, AST 14, ALT 18, Alkaline Phosphatase 72, Total Protein 7.4, Albumin 3.9, Globulin 3.5, Albumin/Globulin Ratio 1.1, Lipase 20 06/18/24 11:41: WBC 16.2 H, RBC 4.89, Hgb 14.5, Hct 45.5, MCV 93.0, MCH 29.7, MCHC 31.9 L, RDW 14.3, Plt Count 211, MPV 12.6 H, Neut # (Auto) 13.1 H, Lymph # (Auto) 1.9, Towns # (Auto) 1.1 H, Eos # (Auto) 0.0, Baso # (Auto) 0.0, Absolute Nucleated RBC 0.00, Band Neuts % (Manual) Not Reportable, Abnorm Lymph % (Manual) Not Reportable, Nucleated RBC % 0.0, Neutrophils # (Manual) Not Reportable, Lymphocytes # (Manual) Not Reportable, Monocytes # (Manual) Not Reportable, Eosinophils # (Manual) Not Reportable, Basophils # (Manual) Not Repo rtable, Differential Comment MANUAL=AUTO DIFF, Manual Slide Review Indicated, WBC Morphology NORMAL ROLY, Platelet Estimate NORMAL (130-450,000), Platelet Morphology 1+ LARGE PLATELETS, RBC Morph Micro Appear NORMAL APPEARANCE Lab results reviewed: Yes Fish Bones: 06/18/24 11:41 06/18/24 11:41 Home Medications and Allergies Home Medications: Ambulatory Orders Ezetimibe [Zetia] 10 mg PO QD 06/19/24 Active Medications Hydrocodone Bitart/Acetaminophen (Hydrocod/Acetam 5/325 Mg Tablet) 1 tab PO Q4HR PRN PRN Reason: Pain 5 to 7 Last Admin: 06/18/24 20:47 Dose: 1 tab Sodium Chloride (Normal Saline 0.9%) 1,000 mls @ 100 mls/hr IV .Q10H [facility] Last Admin: 06/19/24 06:51 Dose: 100 mls/hr Piperacillin Sod/Tazobactam (Sod 3.375 gm/ Sodium Chloride) 100 mls @ 25 mls/hr IV Q8H [facility] Last Admin: 06/19/24 04:52 Dose: 25 mls/hr Morphine Sulfate (Morphine 2 Mg/Ml Carpuject) 2 mg IVP Q2HR PRN PRN Reason: Pain 8 to 10 Promethazine HCl (Promethazine 25 Mg/1 Ml Vial) 25 mg IM Q6HR PRN PRN Reason: Nausea / Vomiting Sodium Chloride (Sodium Chloride Flush 0.9% 10 Ml Syringe) 10 ml IVP PRN PRN PRN Reason: NEEDED PER PROVIDER ORDERS Sodium Chloride (Sodium Chloride Flush 0.9% 10 Ml Syringe) 10 ml IVP 0100,0900,1700 [facility] Last Admin: 06/19/24 00:24 Dose: Not Given Dabigatran Etexilate Mesylate [Pradaxa] 150 mg ORAL BID 12/05/22 Digoxin [Lanoxin] 125 mcg PO DAILY 12/05/22 diltiaZEM CD [Cardizem Cd] 120 mg PO DAILY 12/05/22 Allergies/Adverse Reactions: Allergies Allergy/AdvReac Type Severity Reaction Status Date / Time Godoanm-AVA-MuD Reductase AdvReac Unknown Verified 06/19/24 07:39 Inhibitor Anes History & Medical History - Anesthetic History Anesthesia Complications: reports: No previous complications - Medical History Cardiovascular: reports: Hypertension, Atrial fibrillation Pulmonary: reports: None Gastrointestinal: reports: None Urinary: reports: None, Frequency Neuro: reports: TIA Musculoskeletal: reports: None Endocrine/Autoimmune: reports: None Blood Disorders: reports: None Smoking Status: Former smoker (quit 40 years ago) Psychosocial: reports: No issues indicated History of Cancer?: No - Surgical History Gynecologic: reports: Tubal ligation Exam General: Alert, Oriented x3, Cooperative, No acute distress Dental: WNL Mouth Openin Fingerbreadth Neck Mobility: Normal Mallampati classification: II Thyromental Distance: 4-6 cm Mental/Cognitive Status: Alert/Oriented X3, Normal for patient Plan Anesthesia Type: General Consent for Procedure(s) Verified and Reviewed: Yes Code Status: Attempt Resuscitation ASA classification: 3-Severe systemic disease Is this case an emergency?: No
[2024-06-19] MEDS ORDERED: fentaNYL 100 MCG/2 ML VIAL IVP PRN (07:49)
[2024-06-19] MEDS ORDERED: NALOXONE 0.4 MG/ML VIAL IVP PRN (07:49)
[2024-06-19] MEDS ORDERED: MORPHINE 2 MG/ML CARPUJECT IVP PRN (07:49)
[2024-06-19] MEDS ORDERED: ATROPINE ABBOJECT 1 MG/10 ML SYRINGE IVP PRN (07:49)
[2024-06-19] MEDS ORDERED: HYDROmorphone 0.5 MG/0.5 ML SYRINGE IVP PRN (07:49)
[2024-06-19] MEDS ORDERED: PROPOFOL 200 MG/20 ML VIAL IVP ONE (07:57)
[2024-06-19] MEDS ORDERED: ROCURONIUM 50 MG/5 ML VIAL ONE (07:57)
[2024-06-19] MEDS ORDERED: fentaNYL 100 MCG/2 ML VIAL ONE (07:58)
[2024-06-19] MEDS ORDERED: LACTATED RINGERS 1,000 ML IV SCH (08:00)
[2024-06-19] MEDS ORDERED: SODIUM CHLORIDE 0.9% 10 ML VIAL IVP ONE (08:31)
[2024-06-19] MEDS ORDERED: PHENYLEPHRINE HCL 0.5 MG/5 ML AMPULE ONE (08:31)
[2024-06-19] MEDS ORDERED: DEXAMETHASONE 4 MG/ML VIAL ONE (08:35)
[2024-06-19] MEDS ORDERED: ONDANSETRON 4 MG/2 ML VIAL ONE ×2 (08:35→10:28)
[2024-06-19] MEDS: BUPIVACAINE 0.5%-EPI 1:200000 PF 30 ML VIAL SUBQ ONE ×2 (08:49)
[2024-06-19] MEDS ORDERED: ACETAMINOPHEN 1,000 MG/100 ML 1,000 MG/100 ML BAG IV ONE (09:10)
[2024-06-19] MEDS ORDERED: SUGAMMADEX 200 MG/2 ML VIAL IVP ONE (09:26)
[2024-06-19] MEDS: LACTATED RINGERS 1,000 ML IV ONE ×2 (10:00→10:10)
--- NOTE | 2024-06-19 10:23 | OPERATIVE REPORT ---
Operative Report - General Procedure Date: 06/19/24 Planned Procedure: Laparoscopic appendectomy, possible open appendectomy after waiting for half- life of Xarelto/Pradaxa to minimize risk of bleeding Pre-Op Diagnosis: Acute appendicitis Procedure Performed: Laparoscopic appendectomy with placement of drain Post Op Diagnosis: Acute necrotic appendicitis with microperforation - Procedure Note Primary Surgeon: Flo Dorsey MD Anesthesia Provider: Shorty Hart CRNA Anesthesia Technique: General ET tube, Local (30 mL of half percent Marcaine with epinephrine) IV Fluids (mL): 1,000 Estimated Blood Loss (mL): 5 Drain/Tube Type: Valentin drain (19 Nicaraguan placed in inferior most port site) Indications: Signs and symptoms confirmed with laboratory and x-ray to be acute appendicitis Findings: Acute necrotic appendicitis with microperforation Complications: None - Other Other Information/Narrative: After verbal and written informed consent was obtained detailing the operation, the alternatives to the operation including no operation, risks of infection, bleeding requiring transfusion with its risks, nerve injury, and and after I met with the patient confirming the surgery, the patient was brought to the operative suite and placed supine on the operating table. Great care was taken to avoid pressure points to prevent pressure necrosis or nerve injury. Monitoring devices were applied along with TEDs and pneumatic compressive stockings (to prevent DVT). The patient received preoperative antibiotics for surgical prophylaxis. Shorty William CRNA sedated and anesthetized the patient for the entire procedure. The patient was prepped and draped in usual sterile manner. A "time in" then confirmed that the patient was identified with 3 identifiers (name, date, and medical record number), the history and physical was in the chart, the signed consent confirming the procedure was in the chart, the patient was in the correct position, the aforementioned prophylactic measures were in place were given, we had the correct personnel and equipment to complete the procedure and that anesthesia, and the surgical team was given an opportunity to express any concerns. With the agreement of everyone in the room, we proceeded with the operation. The initial incision was at the umbilicus and dissection to the linea alba was completed using blunt dissection. The linea alba was grasped with a Tonia and incised. In a similar manner the peritoneum was grasped and incised using Metzenbaum scissors. In this location, a 12 mm blunt tipped, balloon tipped port was placed and the balloon was inflated to keep the port in position. The abdominal cavity was insufflated with carbon dioxide to a steady-state pressure of 15 mmHg. 2 additional 5 mm ports were placed in standard locations for laparoscopic appendectomy (above and below the umbilicus at the midline) under direct vision of the 30 degree laparoscope and without incident. The patient was then placed in Trendelenburg position and was rotated slightly to their left. Examination of the right lower quadrant revealed a thickened and clearly infected/inflamed appendix with fibrinous exudate and an area of clear necrosis near the tip. This was carefully grasped to avoid rupture but even with this care there was some leakage from a small perforation in the necrotic area while the dense adhesions were taken down. There were significant adhesions in the right lower quadrant there were primarily taken down using traction and countertraction. Some of the denser adhesions were taken down using application of the LigaSure. and the appendiceal mesentery was taken using sequential application of the LigaSure. Once all the adhesions have been taken down the appendiceal mesentery was somewhat foreshortened but it was taken using serial application of the Ligasure and the base of the appendix was now evident and soft. Once the base of the appendix was encountered the appendix was transected using a laparoscopic JUD stapler with a GI load that had been placed through the umbilical port and the camera was switched to a 5 mm camera and placed through one of the 5 mm ports. Examination of the staple line noted to be intact without leak or bleeding. Photographs were taken. An Endopouch was placed through the umbilical port and the appendix was placed into the Endopouch and the Endopouch was secured. There was some additional necrotic fat that was sent with the appendix. Due to concerns I had for bleeding as the patient was on a direct thrombin inhibitor (Pradaxa) as well as the slight leak from the microperforation, I placed a 19 Nicaraguan Valentin drain through the inferior port site and secured to the skin using a 3-0 nylon which was Genaro sampled about the drain. The drain itself was placed under direct vision in the right gutter. The right lower quadrant was then copiously irrigated using 2 L of warm sterile saline. I in jected the port sites at the peritoneal, fascial, and skin levels under direct vision with 0.5% Marcaine with epinephrine. All ports and the Endopouch containing the appendix were removed. Following appendiceal removal, the remaining carbon dioxide was expelled from the abdomen. The fascia the umbilicus was approximated using a [id number]-pr-zernk 0 Vicryl suture. The skin at each port site was approximated using a subcuticular 4-0 Monocryl. The skin was cleaned of its prep and Dermabond was applied. At this point a "timeout" was performed that confirmed that all counts were correct, the procedure that was performed, the blood loss, the IV fluids administered, the patient's condition and any concerns of the operating team had. Dressings were then applied. Having tolerated the procedure well, the patient was extubated and taken to recovery room in good and stable condition. The plan is for outpatient discharge when the patient is adequately recovered. The plan is to place her under observation overnight to ensure that there are no issues with the surgery and if she tolerates a general diet, her pain is well- controlled, and there are no indications of any sort of issues with the surgery she should be able to go home in the morning. CPT 24699 This document was created in part using voice recognition technology. Because of the inherent limitations of the system, occasional same sounding word substitutions and grammatical errors do occur and persist despite proofreading. Please read this document for context.
[2024-06-19] MEDS: ONDANSETRON 4 MG/2 ML VIAL IVP PRN (10:30)
[2024-06-19] MEDS ORDERED: ACETAMINOPHEN 325 MG TABLET PO PRN (10:33)
[2024-06-19] MEDS ORDERED: SODIUM CHLORIDE FLUSH 0.9% 10 ML SYRINGE IVP PRN (10:33)
[2024-06-19] MEDS ORDERED: PIPERACILLIN/TAZOBACTAM 3.375 GM in SODIUM CHLORIDE 0.9% MINIBAG 100 ML IV SCH (11:00)
--- NOTE | 2024-06-19 11:05 | ANESTHESIA POST OP EVALUATION ---
Anesthesia Post Eval - Post Anesthesia Eval Vitals: Last Vital Signs Temp 36.7 C 06/19/24 10:50 Pulse 87 06/19/24 10:50 Resp 16 06/19/24 10:50 BP 121/63 06/19/24 10:50 Pulse Ox 93 06/19/24 10:50 O2 Flow Rate CV Function Including HR & BP: Stable Pain Control: Satisfactory Nausea & Vomiting: Negative Mental Status: Baseline Respiratory Status: Airway Patent, Other (Requiring supplemental 4 l/m O2. Encouraging deep breath/cough) Hydration Status: Satisfactory Anesthesia Complications: None
--- NOTE | 2024-06-19 12:44 | PHARMACY PROGRESS NOTE ---
- Best Possible Medication History Admit Date and Time: 06/19/24 1033 Processed by: Pharmacy Medication History completed: Yes Patient Interview: Completed Secondary Source(s): Written medication list, Insurance records (PER S[employer]CRIPTS RECORD AND PT INTERVIEW) As the person ultimately responsible for medication therapy, providers are able to order a medication from an existing home medication list in [facility] [employer] via the "Reconcile Routine" prior to Confirmation of that medication by java support engineer. Such practice is discouraged except when the physician, in their clinical judgment, deems that a medical need exists for a medication without regard to previous use.
[2024-06-19] MEDS: SODIUM CHLORIDE 0.9% 1,000 ML IV SCH (12:56)
[2024-06-19] MEDS: MORPHINE 2 MG/ML CARPUJECT IVP PRN (12:57)
[2024-06-19] MEDS: SODIUM CHLORIDE FLUSH 0.9% 10 ML SYRINGE IVP SCH (16:12)
[2024-06-19] MEDS: HYDROcod/ACETAM 5/325 MG TABLET PO PRN (17:32)
[2024-06-19] MEDS ORDERED: SIMETHICONE 40 MG/0.6 ML 30 ML BOTTLE PO PRN (18:39)
[2024-06-19] MEDS: DOCUSATE SODIUM 250 MG CAPSULE PO SCH (18:42)
[2024-06-19] MEDS: SIMETHICONE CHEW 80 MG TABLET PO PRN (20:48)
[2024-06-20 05:18] LABS: BASOPHILS % (AUTO) 0.1 %; EOSINOPHILS % (AUTO) 0.1 %; HCT - HEMATOCRIT 36.8 % (37.0-47.0); HGB - HEMOGLOBIN 11.7 g/dL (12.0-16.0); LYMPHOCYTES # (AUTO) 1.4 10^3/uL (1.5-3.5); LYMPHOCYTES % (AUTO) 7.9 %; MEAN CORPUSCULAR HEMOGLOBIN 30.1 pg (27.0-31.0); MEAN CORPUSCULAR HGB CONC 31.8 g/dL (32.0-36.0); MEAN CORPUSCULAR VOLUME 94.6 fL (81.0-99.0); MEAN PLATELET VOLUME 12.9 fL (7.9-10.8); MONOCYTES # (AUTO) 1.1 10^3/uL (0.0-1.0); MONOCYTES % (AUTO) 6.5 %; NEUTROPHILS # (AUTO) 14.8 10^3/uL (1.5-6.6); NEUTROPHILS % (AUTO) 84.8 %; PLT - PLATELET COUNT 175 10^3/uL (130-450); RED BLOOD COUNT 3.89 10^6/uL (4.20-5.40); RED CELL DISTRIBUTION WIDTH 14.6 % (12.0-15.0); WHITE BLOOD COUNT 17.5 x10^3/uL (4.8-10.8)
[2024-06-20 05:42] LABS: BILIRUBIN,TOTAL 0.6 mg/dL (0.2-1.0); CALCIUM 8.2 mg/dL (8.5-10.3); CREATININE 0.6 mg/dL (0.6-1.3); POTASSIUM 4.3 mmol/L (3.5-4.5); TOTAL PROTEIN 5.9 g/dL (6.4-8.9)
[2024-06-20 07:47] VITALS: O2SAT 94
[2024-06-20] MEDS: DOCUSATE SODIUM 100 MG CAPSULE PO SCH (09:12)
[2024-06-20 12:26] VITALS: BP 145/84
--- NOTE | 2024-06-20 13:16 | PROVIDER PROGRESS NOTE ---
Subjective - General Admit Date: 06/19/24 Procedure Date: 06/19/24 Post Op Days: 1 Procedure Performed: Laparoscopic appendectomy with placement drain - Review of Systems Wound/Incisions: positive: Healing well Drain Type: 19 Fr Valentin Drain Output Description: Milky. Approximate mls Output: 26 mL measured by me General: positive: No symptoms. negative: Fever, Malaise, Chills HEENT: positive: No symptoms Pulmonary: positive: No symptoms Cardiovascular: positive: No symptoms Gastrointestinal: positive: No symptoms, Other (Tolerating diet.). negative: Nausea, Vomiting Musculoskeletal: positive: No symptoms Skin: positive: No symptoms Objective - Patient Data Reviewed Vital Signs: Yes Vital Signs: Vital Signs x48h Temp Pulse Resp BP Pulse Ox O2 Flow Rate 06/20/24 12:24 36.1 C L 85 18 145/84 H 94 06/20/24 07:43 36.7 C 77 18 101/59 L 94 2 06/20/24 07:30 2 Weight: Weight 06/18/24 06/19/24 06/20/24 23:59 23:59 23:59 Weight (kg) 87.543 kg 87.543 kg Intake & Output: Intake and Output Totals x24h 06/18/24 06/19/24 06/20/24 23:59 23:59 23:59 Intake Total 1400 2096.667 1640 Output Total 140 20 Balance 1400 8775.695 2692 - Lab Results Lab Results: 06/20/24 04:50 06/20/24 04:50 Other Lab Results: Lab Results x24hrs 06/20/24 06/20/24 Range/Units 04:50 04:50 WBC 17.5 H (4.8-10.8) x10^3/uL RBC 3.89 L (4.20-5.40) 10^6/uL Hgb 11.7 L (12.0-16.0) g/dL Hct 36.8 L (37.0-47.0) % MCV 94.6 (81.0-99.0) fL MCH 30.1 (27.0-31.0) pg MCHC 31.8 L (32.0-36.0) g/dL RDW 14.6 (12.0-15.0) % Plt Count 175 (130-450) 10^3/uL MPV 12.9 H (7.9-10.8) fL Neut # (Auto) 14.8 H (1.5-6.6) 10^3/uL Lymph # (Auto) 1.4 L (1.5-3.5) 10^3/uL [place] # (Auto) 1.1 H (0.0-1.0) 10^3/uL Eos # (Auto) 0.0 (0.0-0.7) 10^3/uL Baso # (Auto) 0.0 (0.0-0.1) 10^3/uL Absolute Nucleated RBC 0.00 x10^3/uL Nucleated RBC % 0.0 /100WBC Sodium 135 (135-145) mmol/L Potassium 4.3 (3.5-4.5) mmol/L Chloride 104 (101-111) mmol/L Carbon Dioxide 26 (21-32) mmol/L Anion Gap 5.0 L (6-13) BUN 9 (6-20) mg/dL Creatinine 0.6 (0.6-1.3) mg/dL Estimated GFR (MDRD) 96 (>89) Glucose 116 H (74-104) mg/dL Calcium 8.2 L (8.5-10.3) mg/dL Total Bilirubin 0.6 (0.2-1.0) mg/dL AST 10 (10-42) IU/L ALT 10 (10-60) IU/L Alkaline Phosphatase 53 (42-121) IU/L Total Protein 5.9 L (6.4-8.9) g/dL Albumin 3.0 L (3.2-5.5) g/dL Globulin 2.9 (2.1-4.2) g/dL Albumin/Globulin Ratio 1.0 (1.0-2.2) - Current Medications Current Medications: Current Medications Generic Name Dose Route Start Last Admin Trade Name Freq PRN Reason Stop Dose Admin Hydrocodone Bitart/Acetaminophen 1 tab 06/19/24 10:33 06/20/24 12:43 Hydrocod/Acetam 5/325 Mg Tablet PO 1 tab Q4HR PRN Administration Pain 5 to 7 Docusate Sodium 100 mg 06/20/24 09:00 06/20/24 09:12 Docusate Sodium 100 Mg Capsule PO 100 mg DAILY FROILAN Administration Piperacillin Sod/Tazobactam 100 mls @ 25 mls/hr 06/18/24 20:15 06/20/24 12:45 Sod 3.375 gm/ Sodium Chloride IV 06/20/24 13:15 Not Given Q8H FROILAN Sodium Chloride 1,000 mls @ 75 mls/hr 06/19/24 10:42 06/20/24 04:16 Normal Saline 0.9% IV 75 mls/hr .[id number] FROILAN Administration Morphine Sulfate 2 mg 06/19/24 10:33 06/19/24 16:12 Morphine 2 Mg/Ml Carpuject IVP 2 mg Q2HR PRN Administration Pain 8 to 10 Simethicone 80 mg 06/19/24 20:21 06/20/24 09:12 Simethicone Chew 80 Mg Tablet PO 80 mg Q6H PRN Administration Gas Sodium Chloride 10 ml 06/19/24 17:00 06/20/24 09:13 Sodium Chloride Flush 0.9% 10 Ml Syringe IVP Not Given 0100,0900,1700 [facility] - Physical Exam Wound/Incisions: positive: Healing well, Other (Drain output again milky.) General Appearance: positive: No acute distress, Alert Eyes Bilateral: positive: No lid inflammation, Conjunctivae nml, No scleral icterus ENT: positive: No signs of dehydration Neck: positive: Trachea midline Respiratory: positive: Chest non-tender, No respiratory distress, Breath sounds nml Cardiovascular: positive: Irregularly irregular, Systolic murmur (II/) Abdomen: positive: Non-tender, Nml bowel sounds, No distention, Tenderness (Incisional) Skin: positive: Color nml, No rash, Warm, Dry Extremities: positive: Nml appearance Neurologic/Psychiatric: positive: Oriented x3, Motor nml, Sensation nml, Mood/affect nml ABX Reporting Has patient been on IV antibiotics over the past 48 hours?: Yes Impression/Plan - Problem List Problem List: D1 s/p laparoscopic appendectomy with placement of drain. ID) Concerned as her WBC increased. Aware that she has a UTI. Aware that she had a microperforation of her appendix (hence the drain - in addition to her risk of bleeding). The drainage is milky and it may be reactive or indication of infection. Due to concern of infection as well as UTI will start patient on Levaquin and Flagyl and sen her home on a 10 day course. Discussed this with patient and family. Family would like prescription sent to [facility]. Pain) Will discharge home with [place] 5 and stool softeners to prevent constipation. Again, discussed this with patient and family. FU) With me in office to remove drain and perform wound check. Instructed to call with questions or concerns. Meds) Restart blood thinner this evening as well as all her normal medicatio ns.
--- NOTE | 2024-06-20 13:28 | DISCHARGE SUMMARY ---
"Discharge Summary Admit Date: 06/18/24 Discharge Date: 06/20/24 Discharging Provider: Flo Dorsey MD Code Status: Attempt Resuscitation Condition at Discharge: Good Discharge Disposition: 01 Home, Self Care - DIAGNOSES Admission Diagnoses: Acute appendicitis Discharge Diagnoses with Status of Each Condition: Acute appendicitis with microperforation in patient on blood thinners. Appendix removed. Patient to restart blood thinner today. UTI diagnosed during hospitalization. Due to concerns for intra-abdominal infection as well as UTI patient discharged with 10 day course of Levaquin and Flagyl. - HPI History of Present Illness: 83 year old female with 2 day history of epigastric to RLQ pain pain that was unremitting prompting visit to [facility] ED where acute appendicitis was confirmed with laboratory values, radiologic studies and physical examination. I was consulted and waited to perform surgery to decrease the risk of bleeding secondary to blood thinners. Surgery yesterday and patient doing as expected. Concern for UTI and intra-abdominal infection has patient going home on antibiotics. - CONSULTS | PROCEDURES Consultations: Flo Dorsey MD (general surgery) Procedures: Laparoscopic appendectomy with placement of drain - HOSPITAL COURSE Hospital Course: Uncomplicated. - ALLERGIES Allergies/Adverse Reactions: Allergies Allergy/AdvReac Type Severity Reaction Status Date / Time [id number] Reductase AdvReac Unknown Verified 06/19/24 07:39 Inhibitor - MEDICATIONS Home Medications: Ambulatory Orders Medication Instructions Recorded Confirmed Dabigatran Etexilate Mesylate 150 mg ORAL BID 12/05/22 06/19/24 [Pradaxa] Ezetimibe [Zetia] 10 mg PO QD 06/19/24 06/19/24 dilTIAZem HCL [Diltiazem 24Hr ER] 1 cap PO DAILY 06/19/24 06/19/24 Docusate Sodium 100Mg Capsule 100 mg PO DAILY #20 cap 06/20/24 [Colace 100Mg Capsule] HYDROcod/ACETAM 5/325 [[place] 5/325] 1 tab PO Q4HR PRN #10 tab 06/20/24 levoFLOXacin [Levaquin] 250 mg PO ONCE #10 tablet 06/20/24 metroNIDAZOLE [Flagyl] 250 mg PO Q6H #40 tablet 06/20/24 - PHYSICAL EXAM AT DISCHARGE General Appearance: positive: No acute distress, Alert Eyes Bilateral: positive: No lid inflammation, Conjunctivae nml, No scleral icterus ENT: positive: No signs of dehydration Respiratory: positive: Chest non-tender, No respiratory distress, Breath sounds nml Cardiovascular: positive: Irregularly irregular, Systolic murmur Abdomen: positive: Nml bowel sounds, No distention, Tenderness (Incisional). negative: Guarding, Rebound Skin: positive: Color nml, No rash, Warm, Dry Extremities: positive: Nml appearance Neurologic/Psychiatric: positive: Oriented x3, Motor nml, Sensation nml, Mood/affect nml - LABS Result Diagrams: 06/20/24 04:50 06/20/24 04:50 - FOLLOW UP Follow Up: This Friday in my office: [facility] [address] [place] [address], [place] [address] - TIME SPENT Time Spent in Discharge (Minutes): 45"
--- NOTE | 2024-06-20 13:41 | Discharge Plan ---
Discharge Plan Problem Reviewed?: Yes Disposition: Home, Self Care Condition: Good Prescriptions: HYDROcod/ACETAM 5/325 [[place] 5/325] 1 tab PO Q4HR PRN #10 tab PRN Reason: Pain 5 to 7 Docusate Sodium 100Mg Capsule [Colace 100Mg Capsule] 100 mg PO DAILY #20 cap metroNIDAZOLE [Flagyl] 250 mg PO Q6H #40 tablet levoFLOXacin [Levaquin] 250 mg PO ONCE #10 tablet Diet: Regular Activity Restrictions: No Restrictions (No lifting >15 pounds for 6 weeks.) Shower Restrictions: No Driving Restrictions: Yes Weight Bearing: Full Weight Plan of Treatment: Strip drain three times daily and record amount. Complete antibiotic course. No Smoking: If you smoke, Please STOP! Call for help. Follow-up with: Doris Herzog PA-C [Primary Care Provider] - Flo Dorsey MD [Provider Admit Priv/Credential] -
== END 2024-06-20 14:30 | disposition home or self-care (01) ==
LOC: ED 11:10 → SDS 16:40 → MS2 17:13 → SDS 06-19 10:32 → MS2 06-19 10:33
PROVIDERS: ADMIT Surgery; ATTEND Surgery
PROC: 0DTJ4ZZ Resection of Appendix, Percutaneous Endoscopic Approach (ICD-10-PCS; principal; 2024-06-19 08:00)
DX: K35.32 Acute appendicitis with perforation, localized peritonitis, and gangrene, without abscess (principal); N39.0 Urinary tract infection, site not specified; I48.91 Unspecified atrial fibrillation; I10 Essential (primary) hypertension; E66.9 Obesity, unspecified; Z68.30 Body mass index [BMI] 30.0-30.9, adult; Z79.01 Long term (current) use of anticoagulants; Z79.899 Other long term (current) drug therapy; Z87.891 Personal history of nicotine dependence
CPT/HCPCS: 36415; 44970; 74177; 80053; 81001; 83690; 85025; 87077; 87086; 87181; 96365; 99284; 99285; A9270; J0131; J2372; J7120; Q9967; 81003